=== PATIENT | male | born 1965 | race Two or more races ===

== ENCOUNTER 2021-10-31 07:14 | Emergency (ER) | payer SELFPAY ==
[~2021-10-31] VITALS: Ht 175.3 cm; Wt 86.2 kg
[2021-10-31 07:23] VITALS: BP 130/92
== END 2021-10-31 09:00 | disposition left against medical advice (07) ==
LOC: EDBD 07:14 → ER 07:14
DX: R53.1 Weakness (principal); Z53.21 Procedure and treatment not carried out due to patient leaving prior to being seen by health care provider

== ENCOUNTER 2021-11-12 05:49 | Emergency (ER) | payer MEDICARE, OTHER ==
[~2021-11-12] VITALS: Ht 180.3 cm; Wt 77.1 kg
[2021-11-12 05:55] VITALS: BP 109/74
== END 2021-11-12 06:09 | disposition left against medical advice (07) ==
LOC: EDBD 05:49 → ER 05:49
DX: R45.851 Suicidal ideations (principal); Z53.21 Procedure and treatment not carried out due to patient leaving prior to being seen by health care provider